=== PATIENT | male | born 1980 | race Asian ===

== ENCOUNTER 2020-12-08 14:45 | Emergency (ER) | payer OTHER ==
[~2020-12-08] VITALS: Ht 167.6 cm; Wt 72.6 kg
[2020-12-08 14:53] VITALS: TEMP 98.2
[2020-12-08 15:06] LABS: PLATELET COUNT 289 K/uL (142-355)
[2020-12-08 15:14] LABS: POTASSIUM 3.7 mmol/L (3.6-5.2); SODIUM 136 mmol/L (136-145)
[2020-12-08 18:21] VITALS: BP 131/86
== END 2020-12-08 18:21 ==
LOC: ED 14:45
PROVIDERS: Family Medicine
DX: R07.89 Other chest pain (principal); R11.0 Nausea; R51.9 Headache, unspecified; Z20.828 Contact with and (suspected) exposure to other viral communicable diseases
CPT/HCPCS: 36415; 80053; 82550; 82553; 84484; 85027; 87635; 93005; 96374; 96375; 99284; J1885; J2550; U0003

== ENCOUNTER 2020-12-12 15:18 | Emergency (ER) | payer OTHER ==
[~2020-12-12] VITALS: Ht 167.6 cm; Wt 72.6 kg
[2020-12-12 15:22] VITALS: BP 144/101; TEMP 98.4
[2020-12-12 16:14] LABS: PLATELET COUNT 257 K/uL (142-355)
[2020-12-12 16:19] LABS: POTASSIUM 4.4 mmol/L (3.6-5.2)
== END 2020-12-12 16:44 ==
LOC: ED 15:18
PROVIDERS: Family Medicine
DX: Z76.5 Malingerer [conscious simulation] (principal); Z00.00 Encounter for general adult medical examination without abnormal findings
CPT/HCPCS: 36415; 80053; 85027; 99282

== ENCOUNTER 2020-12-15 17:53 | Emergency (ER) | payer OTHER ==
[~2020-12-15] VITALS: Ht 167.6 cm; Wt 72.6 kg
[2020-12-15 17:53] VITALS: TEMP 99.4
[2020-12-15 18:42] LABS: PLATELET COUNT 267 K/uL (142-355)
[2020-12-15 18:58] LABS: POTASSIUM 3.9 mmol/L (3.6-5.2)
[2020-12-15 19:21] LABS: PARTIAL THROMBOPLASTIN TIME 24.7 SECONDS (24.5-33.6)
[2020-12-15 20:45] VITALS: BP 134/84
== END 2020-12-15 20:45 ==
LOC: ED 17:53
PROVIDERS: Family Medicine
DX: R56.9 Unspecified convulsions (principal); R11.0 Nausea; G89.29 Other chronic pain
CPT/HCPCS: 36415; 80053; 80307; 81000; 85027; 85610; 85730; 96365; 96375; 99284; J1885; J1953; J2550